=== PATIENT | male | born 1995 | race Caucasian/White ===

== ENCOUNTER 2017-07-09 18:59 | Emergency (ER) | payer OTHER ==
[~2017-07-09] VITALS: Ht 167.6 cm; Wt 81.6 kg
[2017-07-09 19:36] VITALS: BP 136/68
[2017-07-09] MEDS ORDERED: IBUPROFEN 600 MG TAB PO ONE (22:00)
== END 2017-07-09 22:05 | disposition home or self-care (01) ==
LOC: ER 18:59
DX: S40.021A Contusion of right upper arm, initial encounter (principal); V80.010A Animal-rider injured by fall from or being thrown from horse in noncollision accident, initial encounter; Y93.89 Activity, other specified; Y92.89 Other specified places as the place of occurrence of the external cause; Y99.8 Other external cause status
CPT/HCPCS: 73080; 73130